=== PATIENT | male | born 1960 | race Caucasian/White ===

== ENCOUNTER 2021-08-25 12:47 | Emergency (ER) | payer SELFPAY ==
[2021-08-25 12:48] VITALS: BP 157/101; PULSE 92; RESP 20; TEMP 36.6; O2SAT 100; BMI 29.3
[2021-08-25 12:49] VITALS: BP 157/101; PULSE 98; RESP 20; TEMP 36.6; O2SAT 100
--- NOTE | 2021-08-25 13:21 | EDS_ITS ---
HPI <KRISTINA Regan - Last Filed: 08/25/21 15:10> History of Present Illness Chief Complaint: Flank Pain Narrative Narrative: 60-year-old male with history of lymphoma, kidney stones presents to the emergency department with 1 week of right-sided flank pain. Patient does have history of kidney stones, he states he usually feels in his back, around to his front and then he urinates them out. However this 1 is continuing and the pain is getting severe. Patient states that for the last 3 days, he has had nausea, vomiting, cold sweats and worsening pain to the right flank. Denies any fevers or chills. PFSH <KRISTINA Regan - Last Filed: 08/25/21 15:10> PFSH Medical History no medical history Home Medications naproxen 500 mg tablet (Naprosyn) 500 mg PO BID PRN pain #20 tabs 08/25/21 [Rx Last Taken Unknown] ondansetron 4 mg disintegrating tablet 4 mg PO Q8H PRN nausea and vomiting #10 tabs 08/25/21 [Rx Last Taken Unknown] oxycodone-acetaminophen 5 mg-325 mg tablet (Percocet) 1 tab PO Q6H PRN pain 3 days #10 tabs 08/25/21 [Rx Last Taken Unknown] Allergy/AdvReac Type Severity Reaction Status Date / Time No Known Allergies Allergy Verified 08/25/21 12:49 Social History Smoking Status: Unknown if ever smoked ROS <KRISTINA Regan - Last Filed: 08/25/21 15:10> ROS ED ROS Narrative Constitutional: Negative for fever, chills, weight loss, weakness Eyes: Negative for vision loss, vision change, double vision ENT: Negative for any sore throat, ear pain, congestion Cardiovascular: Negative for any chest pain, tightness, palpitations Respiratory: Negative for any cough, sputum production, hemoptysis, dyspnea, dyspnea on exertion, orthopnea Gastrointestinal: Negative for any diarrhea, constipation, blood in stool, blood in vomit. Positive for abdominal pain, nausea and vomiting : Negative for any urinary frequency, dysuria, retention, blood in urine Muscle skeletal: Negative for any muscle joint pain, stiffness, myalgias, arthralgias, neck pain. Positive for right sided flank pain Neurological: Negative for any headache, syncope, numbness or tingling, dizziness Skin: Negative for any rashes, lumps, itching, abrasions, lacerations Psychiatric: Negative for any depression, anxiety, stress, suicidal ideation, homicidal ideation Hematologic: Negative for any easy bruising, excessive bruising, easy bleeding Allergies: Negative for any eczema, hives, rash EXAM <Jostin OakestaraKRISTINA steen - Last Filed: 08/25/21 15:10> Physical Exam Narrative Exam Narrative: Vital signs reviewed. Patient does appear to be mild discomfort. HEET: Head normocephalic atraumatic, TMs clear bilaterally. Posterior pharynx is clear, moist mucous membranes. Nares clear bilaterally. Neck: Supple with no lymphadenopathy or tenderness. No signs of meningismus, negative jolt sign. Cardiac: Regular rate and rhythm no murmurs gallops or rubs, equal peripheral pulses bilaterally. Respiratory: Lungs clear to auscultation bilaterally. No chest tenderness. Abdomen: Soft, nondistended. No abdominal bruit or pulsatile masses. No hepatosplenomegaly. Tenderness right lower quadrant Extremities: No peripheral edema, no signs of gross trauma or deformity. Active full range of motion of all extremities. Neuro: Cranial nerves II through XII intact, no focal neurological deficits. Skin: Clean dry and intact with no rash, purpura, petechiae, vesicles or pustules. Backs/flank: No CVA tenderness, no midline spinal tenderness, no deformity. Psych: Normal mood and affect. No SI, HI or acute psychosis. Const Vital Signs: 08/25/21 12:48 08/25/21 12:49 08/25/21 13:49 Temperature 98 F 98 F 98.4 F Temperature Source Temporal Oral Oral Pulse Rate 92 98 89 Respiratory Rate 20 H 20 H 18 Blood Pressure 157/101 H 157/101 H 118/71 Blood Pressure Mean 119 119 86 Pulse Ox 100 100 94 Oxygen Delivery Method Room Air Room Air Room Air 08/25/21 15:29 Temperature Temperature Source Pulse Rate Respiratory Rate Blood Pressure 139/97 H Blood Pressure Mean 111 Pulse Ox Oxygen Delivery Method <Dr. Fernie Pierson MD - Last Filed: 08/25/21 16:57> Physical Exam Const Vital Signs: 08/25/21 12:48 08/25/21 12:49 08/25/21 13:49 Temperature 98 F 98 F 98.4 F Temperature Source Temporal Oral Oral Pulse Rate 92 98 89 Respiratory Rate 20 H 20 H 18 Blood Pressure 157/101 H 157/101 H 118/71 Blood Pressure Mean 119 119 86 Pulse Ox 100 100 94 Oxygen Delivery Method Room Air Room Air Room Air 08/25/21 15:29 Temperature Temperature Source Pulse Rate Respiratory Rate Blood Pressure 139/97 H Blood Pressure Mean 111 Pulse Ox Oxygen Delivery Method ANITA <SHERICE ReganC - Last Filed: 08/25/21 15:10> [facility] Lab Data Attestation: I reviewed the patient's lab results. Labs: Laboratory Results - last 24 hr 08/25/21 08/25/21 08/25/21 13:25 13:25 14:14 WBC 8.6 RBC 4.72 Hgb 14.3 Hct 41.4 MCV 87.7 MCH 30.3 MCHC 34.5 RDW Std Deviation 38.7 RDW Coeff of Harsha 12.0 Plt Count 169 MPV 9.0 Immature Gran % (Auto) 0.500 Neut % (Auto) 79.2 H Lymph % (Auto) 13.7 L [place] % (Auto) 5.6 Eos % (Auto) 0.8 Baso % (Auto) 0.2 Absolute Neuts (auto) 6.8 Absolute Lymphs (auto) 1.17 Nucleated RBC % 0 Sodium 138 Potassium 3.8 Chloride 104 Carbon Dioxide 28.0 Anion Gap 6 BUN 15 Creatinine 1.35 H Estim Creat Clear Calc 51.85 Est GFR (MDRD) Af Amer 69 Est GFR (MDRD) Non-Af 57 L BUN/Creatinine Ratio 11.1 Glucose 107 H Calcium 9.6 Urine Color Yellow Urine Clarity Cloudy Urine pH 7.0 Ur Specific [place] 1.015 Urine Protein 30 H Urine Glucose (UA) Normal Urine Ketones 150 A* Urine Occult Blood 250 H Urine Nitrite Negative Urine Bilirubin Negative Urine Urobilinogen Normal Ur Leukocyte Esterase 25 H Urine RBC 25-50 SEEN Urine WBC 0-5 SEEN Ur Squamous Epith Cells 0-5 SEEN Urine Bacteria 1+ Urine Mucus 0 SEEN Radiography Diagnostic Testing: Clinical Impression(s) from Imaging Studies Abdomen/Pelvis CT 08/25/21 13:57 IMPRESSION: 2 adjacent calculi in the midportion of the right ureter causing right hydronephrosis and right hydroureter. Electronically Signed: Pierce Champion MD at 14:28 EDT , Treatment and Re-Evaluation Narrative: Patient appears to be in mild discomfort secondary to right flank pain. Patient presents emergency department for the right flank pain, right lower abdominal pain has been ongoing for the last week. Patient did receive basic laboratory values, patient CBC was unremarkable, chemistries were unremarkable, patient did have slight elevation in his creatinine with a 1.35. Patient's urinalysis was unremarkable. Patient's abdominal CT showed 2 adjacent calculi in the midportion of the right ureter causing right hydronephrosis and right hydroureter. At this time, there is no indication of any infectious pathology. Patient received IV fluids, IV Zofran, I the Toradol and refused the morphine. I did speak with the patient regarding results, he will receive the 4 mg IV morphine, he will follow-up outpatient with urology. At this time, patient be diagnosed with obstructive urinary calculus, he will follow-up closely with the urologist, instructed return for worsening back pain, fever chills nausea or vomiting. There is no evidence to start antibiotics at this time. Patient be given Percocet, naproxen as well as Zofran for home. Patient stable for discharge <Dr. Fernie Pierson MD - Last Filed: 08/25/21 16:57> MDM MDM Narrative Medical decision making narrative: Seen and evaluated independently and in conjunction with [employer]. Agree with notes above unless documented otherwise. Patient in right flank discomfort that radiates around to the right side, tender in the right CVA as well as the right lower quadrant has already had an appendectomy. Clinically and hemodynamically stable. CT shows to mid ureteral stones with the largest being 4.9 mm. Expectant m anagement is indicated at this time, he is feeling much better after Toradol, no signs of infection on urinalysis, creatinine is 1.35 which is just barely abnormal for his age, however we do not have an old one for comparison and this may be stable for him. Will recommend outpatient follow-up and symptom control with expectant management follow-up with urology as needed he is comfortable with that plan. Lab Data Labs: Laboratory Results - last 24 hr 08/25/21 08/25/21 08/25/21 13:25 13:25 14:14 WBC 8.6 RBC 4.72 Hgb 14.3 Hct 41.4 MCV 87.7 MCH 30.3 MCHC 34.5 RDW Std Deviation 38.7 RDW Coeff of [place] 12.0 Plt Count 169 MPV 9.0 Immature Gran % (Auto) 0.500 Neut % (Auto) 79.2 H Lymph % (Auto) 13.7 L [place] % (Auto) 5.6 Eos % (Auto) 0.8 Baso % (Auto) 0.2 Absolute Neuts (auto) 6.8 Absolute Lymphs (auto) 1.17 Nucleated RBC % 0 Sodium 138 Potassium 3.8 Chloride 104 Carbon Dioxide 28.0 Anion Gap 6 BUN 15 Creatinine 1.35 H Estim Creat Clear Calc 51.85 Est GFR (MDRD) Af Amer 69 Est GFR (MDRD) Non-Af 57 L BUN/Creatinine Ratio 11.1 Glucose 107 H Calcium 9.6 Urine Color Yellow Urine Clarity Cloudy Urine pH 7.0 Ur Specific [place] 1.015 Urine Protein 30 H Urine Glucose (UA) Normal Urine Ketones 150 A* Urine Occult Blood 250 H Urine Nitrite Negative Urine Bilirubin Negative Urine Urobilinogen Normal Ur Leukocyte Esterase 25 H Urine RBC 25-50 SEEN Urine WBC 0-5 SEEN Ur Squamous Epith Cells 0-5 SEEN Urine Bacteria 1+ Urine Mucus 0 SEEN Radiography Diagnostic Testing: Clinical Impression(s) from Imaging Studies Abdomen/Pelvis CT 08/25/21 13:57 IMPRESSION: 2 adjacent calculi in the midportion of the right ureter causing right hydronephrosis and right hydroureter. Electronically Signed: Pierce Champion MD at 14:28 EDT , Discharge Plan Triage Chief Complaint: Flank Pain ED Midlevel Provider: Jostin Lane ED Provider: Fernie Pierson Dx/Rx/DC Orders Clinical Impression: Hydronephrosis with renal and ureteral calculous obstruction Instructions: ED Kidney Stone w/ Colic Prescriptions: New oxycodone-acetaminophen [Percocet] 5-325 mg tablet 1 tab PO Q6H PRN (Reason: pain) 3 Days Qty: 10 0RF naproxen [Naprosyn] 500 mg tablet 500 mg PO BID PRN (Reason: pain) Qty: 20 0RF ondansetron 4 mg tablet,disintegrating 4 mg PO Q8H PRN (Reason: nausea and vomiting) Qty: 10 0RF Primary Care Provider: Marvin Oneill Referrals: Steve Granados MD [STAFF PHYSICIAN] - (Please follow-up in the next 3 to 5 days) Marvin Oneill DO [Primary Care Provider] - Activity Restrictions/Additional Instructions: You will need to take your pain medicine as needed, use the naproxen for minimal pain. Use nausea medication for nausea. You need to maintain hydration. You need to follow-up with urology. Please return here for any worsening back pain, fever chills nausea vomiting Disposition Disposition: Home, Self Care Discharge Date/Time: 08/25/21 15:41
[2021-08-25] MEDS: 0.9% Normal Saline 1,000 ML 1000 ML IV (13:32)
[2021-08-25] MEDS: Ketorolac 15 MG/ML Vial IV (13:33)
[2021-08-25] MEDS: Ondansetron 4 MG/2 ML Vial IV (13:33)
[2021-08-25 13:45] LABS: Anion Gap 6 (5-15); BUN 15 mg/dL (7-18); BUN/Creat Ratio 11.1 RATIO (10-20); Calcium,Total 9.6 mg/dL (8.5-10.1); Chloride 104 mmol/L (98-107); Creatinine, Serum 1.35 mg/dL (0.70-1.30); EST Glomerular Filtration Rate 57 mL/min (>60); Est Glom Filt Rate - Afr Amer 69 mL/min (>60); Estimated Creatinine Clearance 51.85 ml/min; Glucose 107 mg/dL (74-106); Potassium 3.8 mmol/L (3.5-5.1); Sodium Level 138 mmol/L (136-145)
[2021-08-25 13:49] VITALS: BP 118/71; PULSE 89; RESP 18; TEMP 36.9; O2SAT 94
--- NOTE | 2021-08-25 13:57 | CT_ITS ---
STUDY: CT ABDOMEN AND PELVIS WITHOUT CONTRAST REASON FOR EXAM: Male, 60 years old. Abdominal pain. RADIATION DOSAGE (If Supplied By Facility): CTDIvol = ( 11.03 ) mGy, DLP = ( 572.93 ) mGycm TECHNIQUE: Transaxial images were obtained from the dome of the diaphragm to the symphysis pubis without oral contrast, and without intravenous contrast. Sagittal and coronal images were reconstructed. Individualized dose optimization techniques were used for this CT. COMPARISON: None. FINDINGS: Mild degree of dependent bibasilar linear atelectasis. The visualized portions of the heart are within normal limits. There is a 1.9 cm cyst in the lateral aspect of the left lobe of the liver. Normal gallbladder and extrahepatic biliary system. Normal spleen. Normal pancreas. Normal bilateral adrenal glands. There is a 2.9 cm x 2.5 cm cyst in the posterior upper aspect of the right kidney. Mild degree of the right hydronephrosis and right hydroureter due to 2 adjacent calculi in the midportion of the right ureter. The largest calculus measures 4.9 mm. Punctate calculus in the lower pole calyx of the left kidney. Small cyst in the lower pole of the left kidney measuring 1.4 cm. Normal visualized stomach. Normal small intestine. There are multiple colonic diverticula consistent with diverticulosis. The appendix is visualized and appears normal. There is scattered atherosclerotic calcification of the abdominal aorta, without a demonstrated aneurysm. Normal inferior vena cava. Normal retroperitoneum. Normal urinary bladder. There are prostatic calcifications. There is a small umbilical hernia containing fat. There are mild degenerative changes of the visualized lumbar spine. CT/Abdomen/Pelvis without Cont IMPRESSION: 2 adjacent calculi in the midportion of the right ureter causing right hydronephrosis and right hydroureter. Electronically Signed: Pierce Champion MD at 14:28 EDT ,
[2021-08-25 14:03] LABS: Absolute Lymphocyte Count 1.17 X10^3/uL (0.83-4.51); Absolute Neutrophil Count 6.8 X10^3/uL (2.0-7.7); Basophil# 0.02 X10^3/uL; Basophil% 0.2 % (0-1); Eosinophil# 0.07 X10^3/uL; Eosinophils% 0.8 % (0-5); Hematocrit 41.4 % (40-54); Hemoglobin 14.3 g/dL (13.0-16.5); Lymphocyte # 1.17 X10^3/ul (0.83-4.51); Lymphocyte % 13.7 % (19-41); Mean Corp Hgb Conc 34.5 g/dL (32-36); Mean Corpuscular Hgb 30.3 pg (27.0-32.0); Mean Corpuscular Volume 87.7 fL (80-94); Monocyte# 0.48 X10^3/uL; Monocyte% 5.6 % (0-10); NRBC Flagged by Analyzer 0 % (0-5); Neutrophil # 6.77 X10^3/uL (2.7-7.7); Neutrophil % 79.2 % (47-70); Platelet Count 169 K/mm3 (150-450); RBC Distribution Width SD 38.7 fl (35.1-43.9); Red Blood Count 4.72 M/mm3 (4.6-6.2); White Blood Count 8.6 K/mm3 (4.4-11.0)
--- NOTE | 2021-08-25 14:21 | ED.RN ---
PT HAVING INTERMITTENT SPASMS. STATES PAIN IS STABLE AT TIMES THEN RETURNS
[2021-08-25 14:24] LABS: Mucous, Urine 0 SEEN /hpf (<or=2+)
[2021-08-25 14:26] LABS: Color, Urine Yellow (Yellow); Glucose, Dipstick Normal (Normal); Leukocyte Esterase-Dipstick 25 /ul (Negative); Nitrite-Dipstick Negative (Negative); Occult Blood-Urine 250 /ul (Negative); Protein-Dipstick 30 mg/dl (Negative); Specific Gravity, Urine 1.015 (1.002-1.030); Urine Bilirubin Dipstick Negative (Negative); Urine Clarity Cloudy (Clear); Urine Urobilinogen Normal (Normal)
[2021-08-25 14:44] LABS: Ketone-Dipstick 150 mg/dl (Negative)
[2021-08-25 14:45] LABS: Bacteria 1+ /hpf (None Seen); Red Blood Cells-Urine 25-50 SEEN /hpf (0-5); Squamous Epithelial Cells - UA 0-5 SEEN /hpf (0-5); White Blood Cells 0-5 SEEN /hpf (0-5)
--- NOTE | 2021-08-25 14:52 | ED.RN ---
PT AGREES TO PAIN MEDICATION AT THIS TIME
[2021-08-25] MEDS: Morphine 4 MG/ML Syringe IV (14:53)
[2021-08-25 15:29] VITALS: BP 139/97
== END 2021-08-25 15:41 | disposition home or self-care (01) ==
PROVIDERS: Nurse Practitioner; Emergency Provider Emergency Medicine; PCP Family Medicine; Visit Provider Emergency Medicine
DX: N13.2 Hydronephrosis with renal and ureteral calculous obstruction (principal); Z85.79 Personal history of other malignant neoplasms of lymphoid, hematopoietic and related tissues; Z87.442 Personal history of urinary calculi
CPT/HCPCS: 74176; 80048; 81001; 85025; 96361; 96374; 96375; 99283; J7030; A4216; J2405